=== PATIENT | female | born 1970 | race African-American/Black ===

== ENCOUNTER → 2019-06-24 | Outpatient (CLI) | payer BC ==
--- NOTE | 2019-06-24 14:01 | REP ---
Clinical: Trauma. Technique: AP, lateral, bilateral oblique views of the right ankle. Findings: Anterolateral swelling consist with inversion injury. No acute fracture dislocation. Ankle mortise intact. Impression: Swelling. No acute fracture or dislocation. Electronically Signed by Sudheer Wheeler MD 06/24/2019 01:52 P
== END ==
LOC: M RAD 13:12
PROVIDERS: ATTEND Physician Assistant
DX: S99.811A Other specified injuries of right ankle, initial encounter (principal); M79.89 Other specified soft tissue disorders; X50.1XXA Overexertion from prolonged static or awkward postures, initial encounter; Y92.9 Unspecified place or not applicable